=== PATIENT | female | born 1990 | race Caucasian/White ===

== ENCOUNTER 2016-07-30 18:13 | Emergency (ER) | payer OTHER ==
[2016-07-30 19:15] VITALS: BP 125/72
--- NOTE | 2016-07-30 19:32 | UC ---
Skin Complaint HPI - HPI Summary HPI Summary: patient noticed a small red pimple on her left arm 2 days ago, since then the erythmema has increased over the past two days, it is raised and itchy. she thinks it may be a bug bite from sitting outside the day before. - History of Current Complaint Chief Complaint: UCSkin Time Seen by Provider: 07/30/16 19:08 Stated Complaint: LEFT ARM (INSECT BITE?) Hx Obtained From: Patient Hx Last Menstrual Period: 01/12/16 ?: Yes Onset/Duration: Sudden Onset, Lasting Days Skin Exposure Onset/Duration: Days Ago Timing: Constant Onset Severity: Moderate Current Severity: Moderate Location: Discrete Character: Swelling, Pruritus, Redness, Raised Aggravating: Nothing Alleviating: Nothing - Allergy/Home Medications Allergies/Adverse Reactions: Allergies Allergy/AdvReac Type Severity Reaction Status Date / Time No Known Allergies Allergy Verified 07/30/16 19:15 Home Medications: Home Medications Vitamin [Calna] 1 tab PO BEDTIME 07/30/16 [History Confirmed 07/30/16] Review of Systems Constitutional: Negative Skin: Other - 6 cm diameter erythema Eyes: Negative ENT: Negative Respiratory: Negative Cardiovascular: Negative Gastrointestinal: Negative Genitourinary: Negative Motor: Negative Neurovascular: Negative Musculoskeletal: Negative Neurological: Negative Psychological: Negative All Other Systems Reviewed And Are Negative: Yes PMH/Surg Hx/FS Hx/Imm Hx Previously Healthy: Yes Endocrine History Of: Denies: Diabetes, Thyroid Disease Cardiovascular History Of: Denies: Cardiac Disorders, Hypertension, Pacemaker/ICD Respiratory History Of: Denies: COPD, Asthma GI/ History Of: Denies: Ulcer Neurological History Of: Reports: Migraine - Surgical History Surgical History: None - Family History Known Family History: Positive: Hypertension - Social History Alcohol Use: None Substance Use Type: None Smoking Status (MU): Never Smoked Tobacco - Immunization History Most Recent Influenza Vaccination: 6822-1266 Most Recent Tetanus Shot: 01/2014 Most Recent Pneumonia Vaccination: none Physical Exam Triage Information Reviewed: Yes Appearance: Well-Appearing, Well-Nourished, Pain Distress Vital Signs: Initial Vital Signs Temp 98.3 F 07/30/16 19:08 Pulse 76 07/30/16 19:08 Resp 16 07/30/16 19:08 BP 125/72 07/30/16 19:08 Pulse Ox 100 04/26/17 19:08 Vital Signs Reviewed: Yes Eye Exam: Normal Eyes: Positive: Conjunctiva Clear ENT Exam: Normal ENT: Positive: Normal ENT inspection, Hearing grossly normal, Pharynx normal, TMs normal Dental Exam: Normal Neck exam: Normal Neck: Positive: Supple, Nontender, No Lymphadenopathy Respiratory Exam: Normal Respiratory: Positive: Chest non-tender, Lungs clear, Normal breath sounds Cardiovascular Exam: Normal Cardiovascular: Positive: RRR, No Murmur, Pulses Normal Abdominal Exam: Normal Abdomen Description: Positive: Nontender, No Organomegaly, Soft Bowel Sounds: Positive: Present Musculoskeletal Exam: Normal Musculoskeletal: Positive: Strength Intact, ROM Intact, No Edema Neurological Exam: Normal Neurological: Positive: Alert, Muscle Tone Normal Skin: Positive: significant lesion(s) - erythema on left arm, raised, red Course/Dx - Course Course Of Treatment: hx obtained, exam performed, meds reviewed, prednisone prescribed. recommend follow up with OB if not responding to prednisone in 24- 48 hours. - Differential Diagnoses - Skin Complaint Differential Diagnoses: Abscess, Allergic Reaction, Cellulitis, Contact Dermatitis, Local Allergic Reaction - Diagnoses Provider Diagnoses: local allergic reaction Discharge - Discharge Plan Condition: Stable Disposition: HOME Patient Education Materials: General Allergic Reaction (ED) Additional Instructions: Take the medication as prescribed. If no improvement in 24 -48 hours follow up with your primary doctor
== END 2016-07-30 19:42 | disposition home or self-care (01) ==
LOC: UCCORT 18:13
DX: T78.40XA Allergy, unspecified, initial encounter (principal); X58.XXXA Exposure to other specified factors, initial encounter; G43.909 Migraine, unspecified, not intractable, without status migrainosus
CPT/HCPCS: 99212; G0463

== ENCOUNTER 2017-02-02 07:49 | Inpatient (IN) | payer OTHER ==
[2017-02-02] MEDS ORDERED: Oxytocin in LR* 20 UNITS/1,000 ML BAG IVPB SCH ×2 (09:00→19:00)
[2017-02-02 09:49] LABS: Hematocrit 32 % (35-47); Hemoglobin 10.4 g/dl (12.0-16.0); Mean Corpuscular HGB Conc 33 g/dl (31-36); Mean Corpuscular Hemoglobin 26 pg (27-31); Mean Corpuscular Volume 79 fL (80-97); Mean Platelet Volume 8 um3 (7.4-10.4); Red Blood Count 4.03 10^6/ul (4.0-5.4); Red Cell Distribution Width 15 % (10.5-15); White Blood Count 8.7 10^3/ul (3.5-10.8)
[2017-02-02] MEDS ORDERED: OBEPIDURAL* 250 ML ONE (15:15)
[2017-02-02] MEDS ORDERED: OBEPIDURAL* 250 ML EPIDURAL SCH (15:40)
[2017-02-02] MEDS ORDERED: Naloxone* 0.4 MG/ML 1 ML VIAL IV PRN (17:05)
[2017-02-02] MEDS ORDERED: Ondansetron INJ* 2 MG/ML VIAL IV PRN (17:05)
[2017-02-02] MEDS ORDERED: Acetaminophen TAB* 325 MG PO PRN (17:05)
[2017-02-02] MEDS ORDERED: Nalbuphine* 20 MG/ML 1 ML VIAL IV PRN (17:05)
[2017-02-02] MEDS ORDERED: EPHEDrine (Pressors)* 50 MG/ML VIAL IV PUSH PRN (17:05)
[2017-02-02] MEDS ORDERED: oxyCODONE/Acetamin 5/325 MG* TAB PO PRN (17:05)
[2017-02-02] MEDS ORDERED: Witch Hazel PAD* JAR TOPICAL PRN (18:42)
[2017-02-02] MEDS ORDERED: Glycerin ADULT SUPP PR PRN (18:42)
[2017-02-02] MEDS ORDERED: Dibucaine 1% 28.35 GM TUBE PR PRN (18:42)
[2017-02-02] MEDS: Ibuprofen TAB* 600 MG PO PRN (19:25)
[2017-02-03] MEDS: Ibuprofen TAB* 600 MG PO PRN ×4 (04:25→23:57)
[2017-02-03 08:03] LABS: Hematocrit 28 % (35-47); Hemoglobin 9.1 g/dl (12.0-16.0); Mean Corpuscular HGB Conc 33 g/dl (31-36); Mean Corpuscular Hemoglobin 26 pg (27-31); Mean Corpuscular Volume 79 fL (80-97); Mean Platelet Volume 8 um3 (7.4-10.4); Red Blood Count 3.54 10^6/ul (4.0-5.4); Red Cell Distribution Width 15 % (10.5-15); White Blood Count 8.7 10^3/ul (3.5-10.8)
[2017-02-03] MEDS: Docusate CAP* 100 MG PO SCH ×3 (08:41→20:52)
[2017-02-03] MEDS: Ferrous Gluconate TAB* 324 MG TAB PO SCH ×2 (08:41→20:51)
[2017-02-03] MEDS: Simethicone TAB* 80 MG TAB.CHEW PO SCH ×2 (08:42→20:52)
[2017-02-03] MEDS: Acetaminophen TAB* 325 MG PO PRN ×2 (14:30→19:16)
[2017-02-04] MEDS: Acetaminophen TAB* 325 MG PO PRN (04:13)
[2017-02-04] MEDS: Ibuprofen TAB* 600 MG PO PRN ×2 (08:03→14:09)
[2017-02-04 08:17] VITALS: BP 125/67
[2017-02-04] MEDS: Ferrous Gluconate TAB* 324 MG TAB PO SCH (09:24)
[2017-02-04] MEDS: Docusate CAP* 100 MG PO SCH ×2 (09:24→14:09)
[2017-02-04] MEDS: Simethicone TAB* 80 MG TAB.CHEW PO SCH (09:25)
== END 2017-02-04 17:15 | disposition home or self-care (01) | DRG 560 ==
LOC: MCHOBOUT 07:49 → MCHOB 08:30
PROVIDERS: ADMIT Midwife; ATTEND Midwife
PROC: 10E0XZZ Delivery of Products of Conception, External Approach (ICD-10-PCS; principal; 2017-02-02)
PROC: 3E0P3VZ Introduction of Hormone into Female Reproductive, Percutaneous Approach (ICD-10-PCS; 2017-02-02)
PROC: 10907ZC Drainage of Amniotic Fluid, Therapeutic from Products of Conception, Via Natural or Artificial Opening (ICD-10-PCS; 2017-02-02)
DX: O48.0 Post-term pregnancy (principal); D64.9 Anemia, unspecified; O99.824 Streptococcus B carrier state complicating childbirth; O69.81X0 Labor and delivery complicated by cord around neck, without compression, not applicable or unspecified; O77.0 Labor and delivery complicated by meconium in amniotic fluid; O90.81 Anemia of the puerperium; Z3A.40 40 weeks gestation of pregnancy; Z37.0 Single live birth
CPT/HCPCS: 36415; 85025; 86850; 86900; 86901; A9270-GY; J2540

== ENCOUNTER 2017-07-02 16:00 | Emergency (ER) | payer OTHER ==
[2017-07-02 17:02] VITALS: BP 101/60
--- NOTE | 2017-07-02 17:52 | ED ---
Influenza-Like Illness - HPI Summary HPI Summary: 26F presents with with sinus congestion and sore throat for past couple days. She was exposed to strept and flu. She admits to subjective fever and chills. She denies any headache. She denies any ear pain. She denies any chest pain or SOB. She denies any abd pain, n/v/d. She has no medical conditions. She is able to eat and drink okay. - History of Current Complaint Chief Complaint: UCGeneralIllness Time Seen by Provider: 07/02/17 16:58 - Allergy/Home Medications Allergies/Adverse Reactions: Allergies Allergy/AdvReac Type Severity Reaction Status Date / Time No Known Allergies Allergy Verified 07/02/17 16:55 Home Medications: Home Medications Norgestimate-Eth Estradiol(NF) [Ortho Tri-Cyclen (NF)] 1 tab PO DAILY 07/02/17 [ History Confirmed 07/02/17] PMH/Surg Hx/FS Hx/Imm Hx Endocrine/Hematology History: Denies: Hx Diabetes, Hx Thyroid Disease Cardiovascular History: Denies: Hx Hypertension, Hx Pacemaker/ICD Respiratory History: Denies: Hx Asthma, Hx Chronic Obstructive Pulmonary Disease (COPD) GI History: Denies: Hx Ulcer Musculoskeletal History: Denies: Hx Scoliosis Sensory History: Denies: Hx Hearing Aid Neurological History: Reports: Hx Migraine Denies: Hx Headaches, Other Neuro Impairments/Disorders Psychiatric History: Denies: Hx Panic Disorder Infectious Disease History: No Infectious Disease History: Denies: Hx Clostridium Difficile, Hx Hepatitis, Hx Human Immunodeficiency Virus (HIV), Hx of Known/Suspected MRSA, Hx Shingles, Hx Tuberculosis, Hx Known/ Suspected VRE, Hx Known/Suspected VRSA, History Other Infectious Disease, Traveled Outside the [place] in Last 30 Days - Family History Known Family History: Positive: Hypertension - Social History Alcohol Use: None Substance Use Type: Reports: None Smoking Status (MU): Never Smoked Tobacco Have You Smoked in the Last Year: No Review of Systems Negative: Fever Positive: Sore Throat, Ear Ache, Nasal Discharge Negative: Chest Pain Positive: Cough. Negative: Shortness Of Breath Negative: Abdominal Pain All Other Systems Reviewed And Are Negative: Yes Physical Exam Triage Information Reviewed: Yes Vital Signs On Initial Exam: Initial Vitals Temp Pulse Resp BP Pulse Ox 98 F 67 20 101/60 100 07/02/17 16:56 07/02/17 16:56 07/02/17 16:56 07/02/17 16:56 07/02/17 16:56 Vital Signs Reviewed: Yes Appearance: Positive: Well-Appearing Skin: Positive: Warm, Dry Head/Face: Positive: Normal Head/Face Inspection Eyes: Positive: Normal, EOMI, MYAH, Conjunctiva Clear ENT: Positive: Pharyngeal erythema, Uvula midline, Other - soft palate symmetric. Negative: Tonsillar swelling, Tonsillar exudate, Trismus, Muffled voice Neck: Positive: Supple, Nontender, No Lymphadenopathy Respiratory/Lung Sounds: Positive: Clear to Auscultation, Breath Sounds Present Cardiovascular: Positive: Normal, RRR Abdomen Description: Positive: Nontender, Soft Bowel Sounds: Positive: Present Musculoskeletal: Positive: Normal Neurological: Positive: Normal Psychiatric: Positive: Normal Diagnostics - Vital Signs Vital Signs Temp Pulse Resp BP Pulse Ox 07/02/17 16:56 98 F 67 20 101/60 100 - Laboratory Lab Statement: Any lab studies that have been ordered have been reviewed, and results considered in the medical decision making process. Flu Symptom Course/Dx - Course Course Of Treatment: 26F presents with with sinus congestion and sore throat for past couple days. She was exposed to strept and flu. She admits to subjective fever and chills. She denies any headache. She denies any ear pain. She denies any chest pain or SOB. She denies any abd pain, n/v/d. She has no medical conditions. She is able to eat and drink okay. on exam pharynx erythema, uvula midline, soft palate symmetric. lungs CTA. flu and strept normal. will treat with decadron. patient understand and agrees with plan. - Diagnoses Differential Diagnosis/HQI/PQRI: Positive: Influenza, Upper Respiratory Infection, Other - strept Provider Diagnoses: Pharyngitis Discharge - Sign-Out/Discharge Documenting (check all that apply): Discharge - Discharge Plan Condition: Good Disposition: HOME Prescriptions: Dexamethasone TAB* [Decadron TAB*] 4 mg PO DAILY #5 tab Patient Education Materials: Pharyngitis (ED) Referrals: Klaus Palacios [Primary Care Provider] - Additional Instructions: Take steroid once a day for 5 days Take Tylenol or ibuprofen for pain every 6 hours Can gargle salt water Can use cough drops or products such as cloraseptic spray Follow up with primary if no improvement in a week Return to ED if develop fever does not respond to Tylenol or ibuprofen, inability to swallow, or difficulty breathing or any new or worsening symptoms - Billing Disposition and Condition Condition: GOOD Disposition: HOME
== END 2017-07-02 18:11 | disposition home or self-care (01) ==
LOC: UCCORT 16:00
DX: J02.9 Acute pharyngitis, unspecified (principal)
CPT/HCPCS: 87502; 87651; 99212; G0463

== ENCOUNTER 2017-09-20 09:05 | Emergency (ER) | payer OTHER ==
[2017-09-20 09:59] VITALS: BP 113/67
--- NOTE | 2017-09-20 10:29 | UC ---
UC General HPI - HPI Summary HPI Summary: Patient is complaining of 2 day history of sore throat. She states that she was treated for strep throat 2 weeks ago and she completed the course of antibiotics. She was better until 2 days ago. Her has a sore throat as well. She's has no difficulty with swallowing and no fever and has no other complaints. - History of Current Complaint Stated Complaint: SORE THROAT Time Seen by Provider: 09/20/17 09:49 Hx Obtained From: Patient Hx Last Menstrual Period: 06/19/17 Onset/Duration: Gradual Onset Timing: Constant Aggravating: SWALLOW Associated Signs & Symptoms: Negative: Fever - Allergy/Home Medications Allergies/Adverse Reactions: Allergies Allergy/AdvReac Type Severity Reaction Status Date / Time No Known Allergies Allergy Verified 09/20/17 09:51 Home Medications: Home Medications SUMAtriptan TAB* [Imitrex TAB*] PRN 09/20/17 [History] PMH/Surg Hx/FS Hx/Imm Hx Endocrine History: Thyroid Disease - Surgical History Surgical History: None - Family History Known Family History: Positive: Hypertension - Social History 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 Lives: With Family Alcohol Use: None Substance Use Type: None Smoking Status (MU): Never Smoked Tobacco Have You Smoked in the Last Year: No - Immunization History Most Recent Influenza Vaccination: 1790-3450 Most Recent Tetanus Shot: 01/2014 Most Recent Pneumonia Vaccination: none Vaccination Up to Date: Yes Review of Systems Constitutional: Negative Skin: Negative Eyes: Negative ENT: Sore Throat Respiratory: Negative Cardiovascular: Negative Gastrointestinal: Negative Genitourinary: Negative Motor: Negative Neurovascular: Negative Musculoskeletal: Negative Neurological: Negative Psychological: Negative Is Patient Immunocompromised?: No All Other Systems Reviewed And Are Negative: Yes Physical Exam Triage Information Reviewed: Yes Appearance: Well-Appearing Vital Signs Reviewed: Yes Eyes: Positive: Conjunctiva Clear ENT: Positive: Pharyngeal erythema, TMs normal. Negative: Nasal congestion, Nasal drainage Neck: Positive: Supple, Nontender, No Lymphadenopathy. Negative: Nuchal Rigidity Respiratory: Positive: Lungs clear, Normal breath sounds Cardiovascular: Positive: RRR, No Murmur Abdomen Description: Positive: Nontender, No Organomegaly, Soft Bowel Sounds: Positive: Present Musculoskeletal: Positive: ROM Intact Neurological: Positive: Alert Psychological: Positive: Normal Response To Family, Age Appropriate Behavior Skin Exam: Normal Diagnostics - Laboratory Diagnostic Studies Completed/Ordered: RAPID STREP=NEG Course/Dx - Course Course Of Treatment: rapid strep=neg. tx supportive - Differential Dx - Multi-Symptom Provider Diagnoses: Pharyngitis Discharge - Sign-Out/Discharge Documenting (check all that apply): Discharge/Admit/Transfer - Discharge Plan Condition: Stable Disposition: HOME Patient Education Materials: Pharyngitis (ED) Referrals: Klaus Palacios [Primary Care Provider] - Additional Instructions: FOLLOW UP IN 5-7 DAYS FOR A RECHECK IF NOT BETTER OR SOONER IF WORSE - Billing Disposition and Condition Condition: STABLE Disposition: Home
== END 2017-09-20 10:37 | disposition home or self-care (01) ==
LOC: UCCORT 09:05
DX: J02.9 Acute pharyngitis, unspecified (principal)
CPT/HCPCS: 87651; 99211; G0463

== ENCOUNTER 2017-11-22 20:06 | Emergency (ER) | payer OTHER ==
[2017-11-22 20:27] VITALS: BP 124/83
--- NOTE | 2017-11-22 21:01 | UC ---
Abdominal Pain Female HPI - HPI Summary HPI Summary: Pt c/o of abdominal pain that began three days ago around her umbilicus and now has moved to right LQ. Pt had BM this morning and denies, fever, chills, positive for occasional nausea. Pt states that pain comes and goes and worsens with BM, coughing or any type of abdominal straining. Denies any GI disorders denies urinary symptoms . - History of Current Complaint Chief Complaint: UCAbdominalPain Stated Complaint: ABDOMINAL PAIN Time Seen by Provider: 11/22/17 20:37 Hx Obtained From: Patient Hx Last Menstrual Period: 10/14/17 ?: No Onset/Duration: Sudden Onset, Still Present, Worse Since - osnet Timing: Intermittent Episodes Lasting: Severity Initially: Mild Severity Currently: Moderate Pain Intensity: 6 Location: Discrete At: RLQ, Other - umbilicus Radiates: No Character: Colicy, Cramping Aggravating Factor(s): Movement, Other: - straining with BM Alleviating Factor(s): Position Associated Signs and Symptoms: Positive: Nausea - occasional - Risk Factors Ectopic Risk Factor: Negative Ovarian Torsion Risk Factor: Reproductive Age Allergies/Adverse Reactions: Allergies Allergy/AdvReac Type Severity Reaction Status Date / Time No Known Allergies Allergy Verified 11/22/17 20:27 PMH/Surg Hx/FS Hx/Imm Hx Previously Healthy: Yes - Surgical History Surgical History: None - Family History Known Family History: Positive: Hypertension - Social History Occupation: Employed Full-time Lives: With Family Alcohol Use: Occasionally Substance Use Type: None Smoking Status (MU): Never Smoked Tobacco Have You Smoked in the Last Year: No - Immunization History Most Recent Influenza Vaccination: [id number] Most Recent Tetanus Shot: 01/2014 Most Recent Pneumonia Vaccination: none Vaccination Up to Date: Yes Review of Systems Constitutional: Negative Skin: Negative Eyes: Negative ENT: Negative Respiratory: Negative Cardiovascular: Negative Gastrointestinal: Abdominal Pain, Nausea Genitourinary: Negative Motor: Negative Neurovascular: Negative Musculoskeletal: Negative Neurological: Negative Psychological: Negative Is Patient Immunocompromised?: No All Other Systems Reviewed And Are Negative: Yes Physical Exam Triage Information Reviewed: Yes Appearance: Well-Appearing Vital Signs: Initial Vital Signs Temp 98.9 F 11/22/17 20:17 Pulse 75 11/22/17 20:17 Resp 16 11/22/17 20:17 BP 124/83 11/22/17 20:17 Pulse Ox 100 11/22/17 20:17 Vital Signs Reviewed: Yes Eye Exam: Normal ENT: Positive: Hearing grossly normal Dental Exam: Normal Neck exam: Normal Respiratory Exam: Normal Cardiovascular Exam: Normal Abdomen Description: Positive: No Organomegaly, Other: - tenderness with palpation at umbiliucs and just latera to the right of umbilicus Bowel Sounds: Positive: Present, Hypoactive Musculoskeletal Exam: Normal Neurological Exam: Normal Psychological Exam: Normal Skin Exam: Normal Abd Pain Female Course/Dx - Differential Dx/Diagnosis Differential Diagnosis: Appendicitis, Diverticulitis, Irritable Bowel Syndrome Provider Diagnoses: abdominal pain. uti. wait watch appendicitis Discharge - Sign-Out/Discharge Documenting (check all that apply): Patient Departure - Discharge Plan Condition: Stable Disposition: HOME Prescriptions: Cephalexin CAP* [Keflex 500 CAP*] 500 mg PO Q12H #14 cap Patient Education Materials: Urinary Tract Infection in Women (ED), Acute Abdominal Pain (ED) Referrals: Klaus Palacios [Primary Care Provider] - If Needed - Billing Disposition and Condition Condition: STABLE Disposition: Home
[2017-11-22] MEDS ORDERED: Cephalexin CAP* 500 MG PO ONE (21:04)
--- NOTE | 2017-11-25 12:13 | UC ---
- Progress Note Progress Note: Pt on cephalexin no change ljj 11/25/2017 Discharge - Sign-Out/Discharge Documenting (check all that apply): Post-Discharge Follow Up All imaging exams completed and their final reports reviewed: No Studies - Discharge Plan Condition: Stable Disposition: HOME Prescriptions: Cephalexin CAP* [Keflex 500 CAP*] 500 mg PO Q12H #14 cap Patient Education Materials: Urinary Tract Infection in Women (ED), Acute Abdominal Pain (ED) Referrals: Chinmay MANDUJANO,Klaus Polanco [Primary Care Provider] - If Needed - Billing Disposition and Condition Condition: STABLE Disposition: Home
== END 2017-11-22 21:10 | disposition home or self-care (01) ==
LOC: UCCORT 20:06
DX: R10.33 Periumbilical pain (principal); N39.0 Urinary tract infection, site not specified
CPT/HCPCS: 81003; 84702; 87077; 87086; 99212; A9270-GY; G0463

== ENCOUNTER 2018-06-24 09:03 | Emergency (ER) | payer OTHER ==
[2018-06-24 10:19] VITALS: BP 108/73
[2018-06-24 10:49] LABS: Influenza A Molecular NEGATIVE (Negative); Influenza B Molecular NEGATIVE (Negative)
--- NOTE | 2018-06-24 10:51 | ED ---
Respiratory - HPI Summary HPI Summary: 27 yr old with a week of cough, congestion. She has ill exposures in the household. No CP. She is having coughing spells. She denies fever, chills. She has two young children that have been ill with cough and cold symptoms. She has had a child with RSV. - History of Current Complaint Chief Complaint: UCRespiratory Stated Complaint: COUGH, FATIGUE Time Seen by Provider: 06/24/18 10:16 Pain Intensity: 5 - Allergy/Home Medications Allergies/Adverse Reactions: Allergies Allergy/AdvReac Type Severity Reaction Status Date / Time No Known Allergies Allergy Verified 06/24/18 10:09 Home Medications: Home Medications Topiramate [Topamax] 75 mg PO BEDTIME 06/24/18 [History Confirmed 06/24/18] PMH/Surg Hx/FS Hx/Imm Hx Endocrine/Hematology History: Denies: Hx Diabetes, Hx Thyroid Disease Cardiovascular History: Denies: Hx Hypertension, Hx Pacemaker/ICD Respiratory History: Denies: Hx Asthma, Hx Chronic Obstructive Pulmonary Disease (COPD) GI History: Denies: Hx Ulcer Musculoskeletal History: Denies: Hx Scoliosis Sensory History: Denies: Hx Hearing Aid Neurological History: Reports: Hx Migraine Denies: Hx Headaches, Other Neuro Impairments/Disorders Psychiatric History: Denies: Hx Panic Disorder Infectious Disease History: No Infectious Disease History: Denies: Hx Clostridium Difficile, Hx Hepatitis, Hx Human Immunodeficiency Virus (HIV), Hx of Known/Suspected MRSA, Hx Shingles, Hx Tuberculosis, Hx Known/ Suspected VRE, Hx Known/Suspected VRSA, History Other Infectious Disease, Traveled Outside the [place] in Last 30 Days - Family History Known Family History: Positive: Hypertension - Social History Occupation: Works From/At Home Lives: With Family Alcohol Use: Occasionally Substance Use Type: Reports: None Smoking Status (MU): Never Smoked Tobacco Have You Smoked in the Last Year: No Review of Systems Positive: Fatigue. Negative: Fever, Chills Positive: Nasal Discharge Positive: Cough All Other Systems Reviewed And Are Negative: Yes Physical Exam Triage Information Reviewed: Yes Vital Signs On Initial Exam: Initial Vitals Temp Pulse Resp BP Pulse Ox 98.3 F 74 22 108/73 100 06/24/18 10:11 06/24/18 10:11 06/24/18 10:11 06/24/18 10:11 03/21/19 10:11 Vital Signs Reviewed: Yes Appearance: Positive: Well-Appearing, No Pain Distress Skin: Positive: Warm, Skin Color Reflects Adequate Perfusion Head/Face: Positive: Normal Head/Face Inspection Eyes: Positive: EOMI ENT: Positive: Nasal congestion, TMs normal Neck: Positive: Nontender Respiratory/Lung Sounds: Positive: Clear to Auscultation, Breath Sounds Present Cardiovascular: Positive: RRR. Negative: Murmur Musculoskeletal: Positive: Strength/ROM Intact Neurological: Positive: Sensory/Motor Intact, Alert, Oriented to Person Place, Time, CN Intact II-III Psychiatric: Positive: Normal - Sandro Coma Scale Best Eye Response: 4 - Spontaneous Best Motor Response: 6 - Obeys Commands Best Verbal Response: 5 - Oriented Coma Scale Total: 15 Diagnostics - Vital Signs Vital Signs Temp Pulse Resp BP Pulse Ox 06/24/18 10:11 98.3 F 74 22 108/73 100 - Laboratory Lab Results: Lab Results 06/24/18 06/24/18 06/24/18 Range/Units 10:35 10:37 10:38 POC Ur Test Negative (Negative) Influenza A (Rapid) Negative (Negative) Influenza B (Rapid) Negative (Negative) RSV Rapid Negative (Negative) Lab Statement: Any lab studies that have been ordered have been reviewed, and results considered in the medical decision making process. - Radiology chest xray pa mandi Radiology Interpretation Completed By: Radiologist - NAD Disposition - Course Course Of Treatment: 27 yr old female with cough, neg chest xray. Neg RSV and influenza. Rx with albuterol MDI. - Diagnoses Provider Diagnoses: Acute bronchitis Discharge - Sign-Out/Discharge Documenting (check all that apply): Patient Departure All imaging exams completed and their final reports reviewed: Yes - Discharge Plan Condition: Good Disposition: HOME Prescriptions: Albuterol HFA INHALER* [Ventolin HFA Inhaler*] 1 - 2 puff INH Q6H PRN #1 mdi PRN Reason: Cough predniSONE TAB* [Deltasone 20 MG TAB*] 40 mg PO DAILY #10 tab Patient Education Materials: Acute Bronchitis (ED) Referrals: Klaus Palacios [Primary Care Provider] - 2 Days - Billing Disposition and Condition Condition: GOOD Disposition: Home
== END 2018-06-24 11:58 | disposition home or self-care (01) ==
LOC: UCCORT 09:03
DX: J20.9 Acute bronchitis, unspecified (principal)
CPT/HCPCS: 71046; 84702; 99212; G0463

== ENCOUNTER 2018-06-29 08:29 | Emergency (ER) | payer OTHER ==
[2018-06-29 09:54] VITALS: BP 116/85
--- NOTE | 2018-06-29 10:38 | ED ---
Respiratory - HPI Summary HPI Summary: Patient is a 27-year-old female who is otherwise healthy presenting to the ED with a one-week history of respiratory complaint. She states she was seen in the urgent care and diagnosed with bronchitis. She was given albuterol and prednisone without relief. She continues to endorse worsening symptoms, including productive cough. This is with mild amount of sputum and is clear in color. She continues to deny any fevers, sweats, chills. She has also been taking [id number] Robitussin without relief of cough. She denies any body aches. Denies any sore throat or difficulty swallowing. Denies any shortness of breath. - History of Current Complaint Chief Complaint: EDUpperRespComplaint Stated Complaint: SOB/WEAK/WAS DIAGNOSED WITH BROCHITIS PER PT Time Seen by Provider: 06/29/18 08:36 Hx Obtained From: Patient Onset/Duration: Sudden Onset Timing: Constant Initial Severity: Mild Current Severity: Mild Pain Intensity: 3 Character: Cough (Productive) Sputum Amount: Small Sputum Color: Clear Aggravating Factor(s): Nothing Alleviating Factor(s): Nothing Associated Signs and Symptoms: Negative - Risk Factors Status Asthmaticus Risk Factors: Negative Pulmonary Embolism Risk Factors: Negative Cardiac Risk Factors: Negative Pseudomonas Risk Factors: Negative - Allergy/Home Medications Allergies/Adverse Reactions: Allergies Allergy/AdvReac Type Severity Reaction Status Date / Time No Known Allergies Allergy Verified 06/29/18 08:35 PMH/Surg Hx/FS Hx/Imm Hx Previously Healthy: Yes Endocrine/Hematology History: Denies: Hx Diabetes, Hx Thyroid Disease Cardiovascular History: Denies: Hx Hypertension, Hx Pacemaker/ICD Respiratory History: Denies: Hx Asthma, Hx Chronic Obstructive Pulmonary Disease (COPD) GI History: Denies: Hx Ulcer Musculoskeletal History: Denies: Hx Scoliosis Sensory History: Denies: Hx Hearing Aid Neurological History: Reports: Hx Migraine Denies: Hx Headaches, Other Neuro Impairments/Disorders Psychiatric History: Denies: Hx Panic Disorder - Immunization History Hx Pertussis Vaccination: No Immunizations Up to Date: Yes Infectious Disease History: No Infectious Disease History: Denies: Hx Clostridium Difficile, Hx Hepatitis, Hx Human Immunodeficiency Virus (HIV), Hx of Known/Suspected MRSA, Hx Shingles, Hx Tuberculosis, Hx Known/ Suspected VRE, Hx Known/Suspected VRSA, History Other Infectious Disease, Traveled Outside the [place] in Last 30 Days - Family History Known Family History: Positive: Hypertension - Social History Occupation: Employed Part-time Lives: With Family Alcohol Use: Occasionally Hx Substance Use: No Substance Use Type: Reports: None Hx Tobacco Use: No Smoking Status (MU): Never Smoked Tobacco Have You Smoked in the Last Year: No Review of Systems Constitutional: Negative Negative: Fever, Chills, Fatigue, Skin Diaphoresis Negative: Palpitations, Chest Pain Negative: Shortness Of Breath, Cough Genitourinary: Negative Positive: no symptoms reported, see HPI Negative: Arthralgia, Myalgia Skin: Negative Neurological: Negative All Other Systems Reviewed And Are Negative: Yes Physical Exam Triage Information Reviewed: Yes Vital Signs On Initial Exam: Initial Vitals Temp Pulse Resp BP Pulse Ox 98.4 F 81 20 128/97 100 06/29/18 08:31 06/29/18 08:31 06/29/18 08:31 06/29/18 08:31 06/29/18 08:31 Vital Signs Reviewed: Yes Appearance: Positive: Well-Appearing, No Pain Distress, Well-Nourished Skin: Positive: Warm, Skin Color Reflects Adequate Perfusion Head/Face: Positive: Normal Head/Face Inspection Eyes: Positive: Normal Neck: Positive: Supple, Nontender Respiratory/Lung Sounds: Positive: Breath Sounds Present Cardiovascular: Positive: RRR, Pulses are Symmetrical in both Upper and Lower Extremities Musculoskeletal: Positive: Normal, Strength/ROM Intact Neurological: Positive: Alert, Oriented to Person Place, Time, Speech Normal Psychiatric: Positive: Normal, Affect/Mood Appropriate Diagnostics - Vital Signs Vital Signs Temp Pulse Resp BP Pulse Ox 06/29/18 09:47 98.0 F 77 16 116/85 97 06/29/18 08:44 16 06/29/18 08:40 86 148/100 99 06/29/18 08:31 98.4 F 81 20 128/97 100 - Laboratory Lab Statement: Any lab studies that have been ordered have been reviewed, and results considered in the medical decision making process. Disposition - Course Course Of Treatment: On physical examination, patient appears well, however is coughing. There are no sinus tenderness to the maxillary or frontal sinuses. No pharyngeal erythema or postnasal drainage noted on exam. Lungs are CTA, RRR. Patient is requesting a chest x-ray due to her severe cough over the past week, not improved with Robitussin, albuterol inhaler and prednisone. Chest x- ray obtained which has no active acute cardiopulmonary disease. She is also given Robitussin with codeine and Tessalon for relief. She is encouraged to drink lots of fluids, use a humidifier in the home and use Sudafed for any feelings postnasal drip. She is okay at this time for discharge and remains afebrile and otherwise stable. - Diagnoses Provider Diagnoses: Bronchitis Discharge - Sign-Out/Discharge Documenting (check all that apply): Patient Departure Patient Received Moderate/Deep Sedation with Procedure: No - Discharge Plan Condition: Stable Disposition: HOME Prescriptions: Benzonatate CAP* [Tessalon CAP*] 100 mg PO TID #21 cap guaiFENesin/CODIEN 100MG-10MG* [Robitussin AC 100Mg-10Mg*] 10 ml PO Q6H PRN # 120 ml MDD 40 PRN Reason: Cough Patient Education Materials: Viral Syndrome (ED) Referrals: Chinmay MANDUJANO,Klaus Polanco [Primary Care Provider] - Additional Instructions: Take tessalon up to three times daily for cough Robitussin with codeine at bedtime or up to four times daily for cough Sudafed over the counter for relief - Billing Disposition and Condition Condition: STABLE Disposition: Home
== END 2018-06-29 09:47 | disposition home or self-care (01) ==
LOC: ED 08:29
DX: J40 Bronchitis, not specified as acute or chronic (principal)
CPT/HCPCS: 71046; 99282

== ENCOUNTER 2019-02-18 16:30 | Emergency (ER) | payer OTHER ==
--- NOTE | 2019-02-18 18:28 | UC ---
Throat Pain/Nasal Malcom HPI - HPI Summary HPI Summary: 28 y/o female presents to the urgent care c/o sore throat w/ nausea and mild lower back pain last night. This morning Nausea resolved but her sore throat, and CARBAJAL is 6/10 and still present. 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 Pt had a molar extracted and dental procedure on 02/01/2019 and she was Rx Ibuprofen prn to alleviate pain and swelling. She denies dental pain or swelling around the area. She also had body aches and chills, but denies fever , SOB, chest pain, ear pain, cough, dizziness, abdominal pain, V/D. She has been drinking fluids and eating well. LMP:01/05/2019 w/ irregular menstrual cycle and denies urinary symptoms, flank pain, vaginal discharge or STD's. - History of Current Complaint Stated Complaint: SORE THROAT, NAUSEA, BACK PAIN Time Seen by Provider: 02/18/19 18:26 Hx Obtained From: Patient Hx Last Menstrual Period: 05/26/18 ?: No Onset/Duration: Gradual Onset, Lasting Days - 1 day, Still Present Severity: Mild Pain Intensity: 6 Pain Scale Used: 0-10 Numeric Cough: None Associated Signs & Symptoms: Positive: Sinus Discomfort, Nasal Discharge, Fever - last night - Epiglottits Risk Factors Epiglottis Risk Factors: Negative - Allergies/Home Medications Allergies/Adverse Reactions: Allergies Allergy/AdvReac Type Severity Reaction Status Date / Time No Known Allergies Allergy Verified 02/18/19 18:28 Home Medications: Home Medications Ibuprofen TAB* [Advil TAB*] 600 mg PO Q6H PRN 02/18/19 [History Confirmed ] PMH/Surg Hx/FS Hx/Imm Hx Previously Healthy: Yes Neurological History: Migraine - Surgical History Surgical History: None - Family History Known Family History: Positive: Hypertension - Social History Occupation: Employed Full-time Lives: With Family Alcohol Use: Occasionally Substance Use Type: None Smoking Status (MU): Never Smoked Tobacco Have You Smoked in the Last Year: No - Immunization History Most Recent Influenza Vaccination: 7330-3090 Most Recent Tetanus Shot: 01/2014 Most Recent Pneumonia Vaccination: none Vaccination Up to Date: Yes Review of Systems All Other Systems Reviewed And Are Negative: Yes Constitutional: Positive: Chills Skin: Positive: Negative Eyes: Positive: Negative ENT: Positive: Sore Throat, Ear Ache - B/L ear pressure, Nasal Discharge - clear, Sinus Congestion, Other - clear pND Respiratory: Positive: Negative Cardiovascular: Positive: Negative Gastrointestinal: Positive: Negative Genitourinary: Positive: Other - mild lower back pain Motor: Positive: Negative Neurovascular: Positive: Negative Musculoskeletal: Positive: Myalgia Neurological: Positive: Headache Psychological: Positive: Negative Is Patient Immunocompromised?: No Physical Exam - Summary Physical Exam Summary: VITAL SIGNS: Reviewed. GENERAL: Patient is a well developed and nourished female who is sitting comfortable in the examining table. Patient is not in any acute respiratory distress. HEAD AND FACE: No signs of trauma. No ecchymosis, hematomas or skull depressions. No sinus tenderness. EYES: PERRLA, EOMI x 2, No injected conjunctiva, no nystagmus. No photophobia. EARS: Hearing grossly intact. Ear canals and tympanic membranes are within normal limits. MOUTH: Positive pharynx with erythema, exudates, palatal petechiae. B/L tonsillar enlargement with no exudate. Uvula in midline. NECK: Supple, trachea is midline, Positive anterior cervical lymphadenopathy, no JVD, no carotid bruit, no c-spine tenderness, neck with full ROM. No meningeal signs, no Kernig's or brudzinskis signs. CHEST: Symmetric, no tenderness at palpation LUNGS: Clear to auscultation bilaterally. No wheezing or crackles. CVS: Regular rate and rhythm, S1 and S2 present, no murmurs or gallops appreciated. ABDOMEN: Soft, non-tender. No signs of distention. No rebound no guarding, and no masses palpated. Bowel sounds are normal. EXTREMITIES: FROM in all major joints, no edema, no cyanosis or clubbing. NEURO: Alert and oriented x 3. No acute neurological deficits. Speech is normal and follows commands. SKIN: Dry and warm Triage Information Reviewed: Yes Throat Pain/Nasal Course/Dx - Course Course Of Treatment: 28 y/o female presents to the urgent care c/o sore throat w/ nausea and mild lower back pain last night. This morning Nausea resolved but her sore throat, and CARBAJAL is 6/10 and still present. 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 Pt had a molar extracted and dental procedure on 02/01/2019 and she was Rx Ibuprofen prn to alleviate pain and swelling. She denies dental pain or swelling around the area. She also had body aches and chills, but denies fever , SOB, chest pain, ear pain, cough, dizziness, abdominal pain, V/D. She has been drinking fluids and eating well. LMP:01/05/2019 w/ irregular menstrual cycle and denies urinary symptoms, flank pain, vaginal discharge or STD's. Hx obtained. Pt is hemodynamically stable, A&OX3, pharyngitis and URI on examination. Rapid strep: negative, Rapid influenza A&B: negative. Pt given Ibuprofen PO at the clinic to alleviate CARBAJAL and sore throat. Pt tolerated well medication and felt better. UA: negative. test negative. Pt request throat swab to be sent for culture. Pt will be notified of any abnormality. Pt advised to f/u w/ her PCP if symptoms are not improving. D/C instructions explained. Father understood and agreed w/ plan of care. - Differential Dx/Diagnosis Differential Diagnosis/HQI/PQRI: Influenza, Laryngitis, Mononucleosis, Otitis Media, Pharyngitis, URI Provider Diagnosis: Acute viral pharyngitis, Upper respiratory infection Discharge ED - Sign-Out/Discharge Documenting (check all that apply): Patient Departure - D/C home All imaging exams completed and their final reports reviewed: No Studies - Discharge Plan Condition: Stable Disposition: HOME Patient Education Materials: Pharyngitis (ED) Referrals: Klaus Moy PA [Primary Care Provider] - 3 Days Additional Instructions: 1-Please take ibuprofen PO q6-8hrs prn as instructed after meals to alleviate pain and swelling. Increase fluid intake, eat well, rest and avoid strenuous exercise. 2- Throat culture was sent to the lab you will be notified of any abnormality for further management 3-If symptoms do not improve or worsen please return to the urgent care or f/u with your PCP in 3 days for further evaluation and treatment. - Billing Disposition and Condition Condition: STABLE Disposition: Home
[2019-02-18 18:34] VITALS: BP 116/79
[2019-02-18 19:05] LABS: Influenza A Molecular NEGATIVE (Negative); Influenza B Molecular NEGATIVE (Negative)
[2019-02-18] MEDS ORDERED: Ibuprofen TAB* 400 MG PO ONE (19:05)
== END 2019-02-18 19:25 | disposition home or self-care (01) ==
LOC: UCCORT 16:30
DX: J02.9 Acute pharyngitis, unspecified (principal); M54.5 Low back pain; R11.0 Nausea
CPT/HCPCS: 81003; 84702; 87070; 87651; 99212; A9270-GY; G0463

== ENCOUNTER 2020-06-15 11:53 | Inpatient (IN) ==
[2020-06-15] MEDS ORDERED: Buffered Lidocaine 1% SYRIN 1 ml INTRADERM ONE (12:54)
[2020-06-15] MEDS ORDERED: Lactated Ringers 1000 ml BAG 1,000 ML IV ONE (12:54)
[2020-06-15] MEDS ORDERED: Lactated Ringers 1000 ml BAG 1,000 ML IV SCH (13:00)
[2020-06-15 15:37] LABS: Urine Benzodiazepine Screen None Detected (None Detect); Urine Cannabinoids Screen None Detected (None Detect); Urine Opiates Screen None Detected (None Detect)
[2020-06-15 15:39] LABS: Urine Appearance Clear; Urine Color Yellow
[2020-06-15 15:40] LABS: Urine Bilirubin Negative (Negative); Urine Blood Negative (Negative); Urine Glucose Negative (Negative); Urine Ketones Negative (Negative); Urine Nitrite Negative (Negative); Urine Protein Negative (Negative); Urine Urobilinogen Negative (Negative)
[2020-06-15] MEDS ORDERED: Penicillin G Potassium IV 5,000,000 UNITS in NS 0.9% 100 ml BAG 100 ML IVPB ONE (17:34)
[2020-06-15 18:33] LABS: ABS Basophils 0.1 10^3/ul (0-0.2); ABS Lymphocytes 2.2 10^3/ul (1.0-4.8); ABS Monocytes 0.5 10^3/ul (0-0.8); ABS Neutrophils 6.9 10^3/ul (1.5-7.7); Eosinophil % 0.4 %; Hematocrit 29 % (35-47); Hemoglobin 9.6 g/dL (12.0-16.0); Mean Corpuscular HGB Conc 33 g/dL (31-36); Mean Corpuscular Hemoglobin 25 pg (27-31); Mean Corpuscular Volume 76 fL (80-97); Mean Platelet Volume 7.5 fL (7.4-10.4); Platelet Count 280 10^3/uL (150-450); Red Blood Count 3.81 10^6 /uL (3.70-4.87); Red Cell Distribution Width 17 % (10-15); White Blood Count 9.7 10^3/uL (3.5-10.8)
[2020-06-15 19:46] LABS: Albumin 3.2 g/dL (3.2-5.2); BUN/Creatinine Ratio 13.3 (8-20); Calcium 8.5 mg/dL (8.6-10.3); EGFR African American 202.2 (>60); EGFR Non-African American 167.1 (>60); Globulin 3.2 g/dL (2-4); Potassium 3.8 mmol/L (3.5-5.0); Total Bilirubin 0.3 mg/dL (0.2-1.0); Total Protein 6.4 g/dL (6.4-8.9); Uric Acid 4.3 mg/dL (2.3-6.6)
[2020-06-15] MEDS: Penicillin G Potassium IV 3,000,000 UNITS in NS 0.9% 100 ml BAG 100 ML IVPB SCH (22:20)
[2020-06-15] MEDS ORDERED: OBEPIDURAL 250 ML EPIDURAL ONE (23:36)
[2020-06-15] MEDS ORDERED: fentaNYL 100 mcg/2 ml 50 MCG/ML VIAL ONE (23:49)
[2020-06-16] MEDS ORDERED: Lactated Ringers 1000 ml BAG 1,000 ML IV ONE (00:46)
[2020-06-16] MEDS ORDERED: EPHEDrine (Pressors) 50 MG/ML VIAL IV PUSH PRN ×2 (00:46)
[2020-06-16] MEDS ORDERED: Phenylephrine 40 mcg/mL 10mL (400mcg) SYRINGE IV PUSH PRN ×2 (00:46)
[2020-06-16] MEDS ORDERED: Sodium Citrate/Citric Acid LIQ 15 ML UDC PO PRN (00:46)
[2020-06-16] MEDS ORDERED: Lactated Ringers 1000 ml BAG 1,000 ML IV SCH ×2 (01:00→06:00)
[2020-06-16] MEDS ORDERED: OBEPIDURAL 250 ML EPIDURAL SCH (01:00)
[2020-06-16] MEDS: Penicillin G Potassium IV 3,000,000 UNITS in NS 0.9% 100 ml BAG 100 ML IVPB SCH (02:27)
[2020-06-16] MEDS ORDERED: Oxytocin in LR 20 UNITS/1,000 ML BAG IVPB ONE (05:04)
[2020-06-16] MEDS ORDERED: Methylergonovine 0.2 mg AMPULE 1 ml AMP IM ONE (05:39)
[2020-06-16] MEDS ORDERED: Glycerin ADULT 2.4 gm SUPP PR PRN (05:39)
[2020-06-16] MEDS ORDERED: Oxytocin in LR 20 UNITS/1,000 ML BAG IVPB SCH (06:00)
[2020-06-16] MEDS ORDERED: Ondansetron 4 mg VIAL 2 MG/ML 2 ml VIAL IV ONE (06:52)
[2020-06-16 07:31] LABS: ABS Lymphocytes 0.9 10^3/ul (1.0-4.8); ABS Monocytes 0.5 10^3/ul (0-0.8); ABS Neutrophils 13.3 10^3/ul (1.5-7.7); Hematocrit 27 % (35-47); Hemoglobin 8.7 g/dL (12.0-16.0); Lymphocyte % 6.4 %; Mean Corpuscular HGB Conc 32 g/dL (31-36); Mean Corpuscular Hemoglobin 25 pg (27-31); Mean Corpuscular Volume 77 fL (80-97); Mean Platelet Volume 7.3 fL (7.4-10.4); Platelet Count 252 10^3/uL (150-450); Red Blood Count 3.57 10^6 /uL (3.70-4.87); Red Cell Distribution Width 16 % (10-15); White Blood Count 14.7 10^3/uL (3.5-10.8)
[2020-06-16] MEDS ORDERED: Lidocaine 1% VIAL 10 MG/ML VIAL ONE (09:49)
[2020-06-16 13:54] LABS: ABS Lymphocytes 1.7 10^3/ul (1.0-4.8); ABS Monocytes 0.5 10^3/ul (0-0.8); ABS Neutrophils 11.5 10^3/ul (1.5-7.7); Hematocrit 24 % (35-47); Hemoglobin 7.7 g/dL (12.0-16.0); Lymphocyte % 12.4 %; Mean Corpuscular HGB Conc 33 g/dL (31-36); Mean Corpuscular Hemoglobin 25 pg (27-31); Mean Corpuscular Volume 76 fL (80-97); Mean Platelet Volume 7.3 fL (7.4-10.4); Platelet Count 232 10^3/uL (150-450); Red Blood Count 3.12 10^6 /uL (3.70-4.87); Red Cell Distribution Width 17 % (10-15); White Blood Count 13.7 10^3/uL (3.5-10.8)
[2020-06-16] MEDS: Dibucaine 1% OINT 28.35 GM TUBE PR PRN (14:57)
[2020-06-16] MEDS: Witch Hazel PAD JAR TOPICAL PRN (14:57)
[2020-06-16] MEDS ORDERED: diPHENhydraMINE IV 50 MG/ML 1 ml VIAL (BENADRYL) IV PRN (17:44)
[2020-06-16] MEDS ORDERED: Ferric Gluconate IV 125 MG in NS 0.9% 100 ml BAG 100 ML IVPB ONE (18:30)
[2020-06-17 08:45] LABS: ABS Lymphocytes 2.8 10^3/ul (1.0-4.8); ABS Monocytes 0.4 10^3/ul (0-0.8); ABS Neutrophils 8.1 10^3/ul (1.5-7.7); Eosinophil % 0.4 %; Hematocrit 25 % (35-47); Hemoglobin 8.1 g/dL (12.0-16.0); Lymphocyte % 24.3 %; Mean Corpuscular HGB Conc 32 g/dL (31-36); Mean Corpuscular Hemoglobin 25 pg (27-31); Mean Corpuscular Volume 77 fL (80-97); Mean Platelet Volume 7.5 fL (7.4-10.4); Nucleated Red Blood Cells % 0.1; Platelet Count 251 10^3/uL (150-450); Red Blood Count 3.32 10^6 /uL (3.70-4.87); Red Cell Distribution Width 17 % (10-15); White Blood Count 11.4 10^3/uL (3.5-10.8)
[2020-06-18 07:47] VITALS: BP 144/70
[2020-06-18] MEDS: Dibucaine 1% OINT 28.35 GM TUBE PR PRN (08:08)
[2020-06-18] MEDS: Witch Hazel PAD JAR TOPICAL PRN (08:08)
== END 2020-06-18 11:38 | disposition home or self-care (01) | DRG 560 ==
LOC: MCHOBOUT 11:53 → MCHOB 13:15
PROVIDERS: ADMIT Midwife; ATTEND Midwife